=== PATIENT | female | born 1975 | race Caucasian/White ===

== ENCOUNTER 2017-03-02 13:48 | Emergency (ER) | payer OTHER ==
[2017-03-02 13:55] VITALS: BP 142/121; PULSE 77; RESP 20; TEMP 97.9; O2SAT 98
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
[2017-03-02] MEDS ORDERED: BACITRACIN OINTMENT 1 PACKET TP ONE (14:31)
[2017-03-02] MEDS ORDERED: TDAP ADULT 0.5 ML INJ (BOOSTRIX) IM ONE (14:31)
[2017-03-02] MEDS ORDERED: CYCLOBENZAPRINE 10 MG TAB PO ONE (14:38)
[2017-03-02] MEDS ORDERED: OXYCODONE/APAP 5/325 TAB PO ONE (14:38)
== END 2017-03-02 14:45 | disposition home or self-care (01) ==
DX: S70.02XA Contusion of left hip, initial encounter (principal); S76.012A Strain of muscle, fascia and tendon of left hip, initial encounter; Z23 Encounter for immunization; V18.4XXA Pedal cycle driver injured in noncollision transport accident in traffic accident, initial encounter; Y92.410 Unspecified street and highway as the place of occurrence of the external cause; Y99.8 Other external cause status; Y93.55 Activity, bike riding